=== PATIENT | male | born 1970 | race African-American/Black ===

== ENCOUNTER 2016-10-12 15:17 | Emergency (ER) | payer OTHER | END 2016-10-12 16:30 | disposition home or self-care (01) | LOC: ER 15:17 | DX: S43.101A Unspecified dislocation of right acromioclavicular joint, initial encounter (principal); I10 Essential (primary) hypertension; V89.2XXA Person injured in unspecified motor-vehicle accident, traffic, initial encounter | CPT/HCPCS: 73030-RT; 96372; 99283 ==